=== PATIENT | male | born 1975 | race Caucasian/White ===

== ENCOUNTER 2016-11-15 16:11 | Emergency (ER) | payer OTHER ==
[~2016-11-15] VITALS: Ht 175.3 cm; Wt 70.8 kg
[2016-11-15 16:51] VITALS: BP 126/81
== END 2016-11-15 17:30 | disposition home or self-care (01) ==
LOC: ER 16:11
DX: K64.9 Unspecified hemorrhoids (principal); F17.200 Nicotine dependence, unspecified, uncomplicated
CPT/HCPCS: A4606; Z7610

== ENCOUNTER 2019-11-13 06:02 | Emergency (ER) | payer OTHER ==
[~2019-11-13] VITALS: Ht 167.6 cm; Wt 81.6 kg
--- NOTE | 2019-11-13 06:23 | NUR ---
PRESENTED TO THE ER FOR C/O RLQ ABD PAIN RADIATING TO THE R FLANK SINCE 199. + DYSURIA.
[2019-11-13] MEDS ORDERED: KETOROLAC TROMETHAMINE 15 MG/ML VIAL ONE (06:30)
[2019-11-13] MEDS ORDERED: IV NS 0.9% 500 ML BAG IV ONE (06:30)
[2019-11-13] MEDS ORDERED: ONDANSETRON HCL/PF 4 MG/2 ML VIAL ONE (06:30)
[2019-11-13] MEDS ORDERED: ONDANSETRON HCL/PF 4 MG/2 ML VIAL IVP ONE (06:30)
[2019-11-13] MEDS ORDERED: KETOROLAC TROMETHAMINE INJ 30 MG/ML VIAL IV ONE (06:30)
[2019-11-13 06:46] LABS: BASOPHILS # (AUTO) 0.2 /CMM (0.0-0.2); BASOPHILS % (AUTO) 2.3 % (0.0-2.0); EOSINOPHILS % (AUTO) 2.1 % (0.0-6.0); HEMATOCRIT 43 % (39-51); LYMPHOCYTES % (AUTO) 25.9 % (20.0-44.0); MEAN CORPUSCULAR HGB CONC 35 g/dl (31.0-36.0); MEAN CORPUSCULAR VOLUME 91 fL (80-96); MONOCYTES # (AUTO) 0.4 /CMM (0.1-1.30); MONOCYTES % (AUTO) 4.7 % (2.0-12.0); NEUTROPHILS # (AUTO) 4.9 /CMM (1.8-8.9); PLATELET COUNT (AUTO) 278 /CMM (150-450); RED BLOOD CELL COUNT(AUTO) 4.76 MIL/uL (4.5-6.0); WHITE BLOOD COUNT (AUTO) 7.6 K/uL (4.3-11.0)
[2019-11-13 07:00] LABS: CALCIUM, SERUM 8.9 mg/dL (8.5-10.1); POTASSIUM 4.2 mmol/L (3.5-5.1)
[2019-11-13 07:05] LABS: ALBUMIN 4.2 g/dL (3.4-5.0); BILIRUBIN,DIRECT 0.1 mg/dL (0.0-0.2); BILIRUBIN,TOTAL 0.3 mg/dL (0.2-1.0); TOTAL PROTEIN, SERUM 7.6 g/dL (6.4-8.2)
--- NOTE | 2019-11-13 07:32 | NUR ---
PATIENT STATED PAIN HAS IMPROVED. AMBULATORY WITH STEADY GAIT. IV removed. Catheter intact and site benign. Pressure and 4x4 applied to site. No bleeding noted. Patient discharged to home in stable condition. Written and verbal after care instructions given. Patient verbalizes understanding of instruction.
[2019-11-13 07:33] VITALS: BP 126/87
== END 2019-11-13 07:35 | disposition home or self-care (01) ==
LOC: ER 06:05
DX: N20.0 Calculus of kidney (principal); F17.200 Nicotine dependence, unspecified, uncomplicated
CPT/HCPCS: 36415; 74176; 80048; 80076; 83690; 85025; 96374; 96375; 99284; J1885; J2405; J7040

== ENCOUNTER 2023-10-16 16:23 | Emergency (ER) | payer OTHER ==
[~2023-10-16] VITALS: Ht 165.1 cm; Wt 61.2 kg
[2023-10-16 16:52] VITALS: BP 116/75; TEMP 98; O2SAT 98
== END 2023-10-16 19:05 | disposition home or self-care (01) ==
LOC: ER 16:23
DX: S62.92XA Unspecified fracture of left hand, initial encounter for closed fracture (principal); I10 Essential (primary) hypertension; F17.200 Nicotine dependence, unspecified, uncomplicated; X58.XXXA Exposure to other specified factors, initial encounter; Y93.89 Activity, other specified; Y92.89 Other specified places as the place of occurrence of the external cause; Y99.8 Other external cause status
CPT/HCPCS: 73130-TC

== ENCOUNTER 2023-11-01 14:43 | Emergency (ER) | payer OTHER ==
[~2023-11-01] VITALS: Ht 165.1 cm; Wt 72.6 kg
[2023-11-01 14:49] VITALS: BP 122/88; TEMP 98.3
[2023-11-01 15:53] VITALS: O2SAT 95
== END 2023-11-01 15:53 | disposition home or self-care (01) ==
LOC: ER 14:45
DX: S62.633D Displaced fracture of distal phalanx of left middle finger, subsequent encounter for fracture with routine healing (principal); I10 Essential (primary) hypertension; X58.XXXD Exposure to other specified factors, subsequent encounter
CPT/HCPCS: 73130-TC

== ENCOUNTER 2024-05-18 23:07 | Emergency (ER) | payer SELFPAY ==
[~2024-05-18] VITALS: Ht 175.3 cm; Wt 65.8 kg
[2024-05-18] MEDS ORDERED: IBUPROFEN 400 MG TABLET ONE (23:59)
[2024-05-19] MEDS: IBUPROFEN 400 MG TABLET PO ONE
[2024-05-19 01:29] VITALS: BP 127/93; TEMP 98.2; O2SAT 95
== END 2024-05-19 01:30 | disposition home or self-care (01) ==
LOC: ER 23:17
DX: S13.4XXA Sprain of ligaments of cervical spine, initial encounter (principal); S33.5XXA Sprain of ligaments of lumbar spine, initial encounter; I10 Essential (primary) hypertension; F17.200 Nicotine dependence, unspecified, uncomplicated; V43.62XA Car passenger injured in collision with other type car in traffic accident, initial encounter; Y93.89 Activity, other specified; Y92.488 Other paved roadways as the place of occurrence of the external cause; Y99.8 Other external cause status
CPT/HCPCS: 72125-TC; 72131-TC